=== PATIENT | male | born 1965 ===

== ENCOUNTER 2023-12-16 05:00 | Day surgery (SDC) | payer OTHER ==
[~2023-12-16 05:00] MED LIST: ATORVASTATIN CA40 MG PO; ZESTRIL10 M1 PO
[2023-12-16] MEDS ORDERED: CEFTRIAXONE SODIUM 2,000 MG VIAL IV ONE (09:15)
[2023-12-16] MEDS ORDERED: METRONIDAZOLE/SODIUM CHLORIDE 500 MG/100 ML PIGGYBACK IV ONE (09:15)
[2023-12-16] MEDS ORDERED: HEMOSTATIC MATRIX 1 KIT KIT TOP ONE (09:30)
[2023-12-16] MEDS ORDERED: BUPIVACAINE HCL 30 ML VIAL IJ ONE (09:30)
[2023-12-16] MEDS ORDERED: POVIDONE-IODINE 118 ML BOTT TOP ONE (09:30)
[2023-12-16] MEDS ORDERED: DIBUCAINE 30 GM TUBE RECTAL ONE (09:30)
[2023-12-16] MEDS ORDERED: LIDOCAINE HCL 1%/EPINEPHRINE 20ML VIAL IJ ONE (09:30)
[2023-12-16] MEDS ORDERED: COLACE100 MG PO (10:12)
[2023-12-16] MEDS ORDERED: TRAM1TAB98 PO (10:12)
[2023-12-16] MEDS ORDERED: NEURONTIN300 MG PO (10:12)
== END 2023-12-16 13:50 | disposition home or self-care (01) ==
LOC: CIR.AMB 05:00
PROVIDERS: ATTEND Surgery
DX: K64.1 Second degree hemorrhoids (principal); K64.4 Residual hemorrhoidal skin tags; K64.8 Other hemorrhoids